=== PATIENT | female | born 1965 | race Caucasian/White ===

== ENCOUNTER 2024-07-10 16:48 | Emergency (ER) | payer MEDICAID, SELFPAY ==
[2024-07-10 17:04] VITALS: BP 152/74; PULSE 100; RESP 18; TEMP 36.6; O2SAT 100; BMI 30.4
--- NOTE | 2024-07-10 17:11 | XR_ITS ---
Examination: Duplex scan of the lower extremity, unilateral left complete Date and time of exam: July 10, 2024 1803 hours INDICATIONS: Onset left leg pain today Technique: Duplex scan of the extremity veins using B-mode/grayscale imaging and Doppler spectral analysis and color flow Attention is directed to internal echogenicity, compression and augmentation involving these veins, color flow assessment, spectral analysis Findings: Positive for acute thrombus in the left popliteal vein Left common femoral superficial femoral peroneal posterior tibial veins are compressible and appear open IMPRESSION: Positive for acute deep vein thrombus left popliteal vein
--- NOTE | 2024-07-10 17:11 | XR_ITS ---
Examination: Arterial duplex lower extremity left unilateral Date and time of exam: July 10, 2024 1740 hours INDICATIONS: Cold left foot with blisters in the left calf note is beginning 4 days ago Findings: Duplex sonographic imaging of the lower extremity arteries using B-mode/Salvador scale imaging and Doppler spectral analysis and color flow. Left common femoral artery demonstrates triphasic flow. Left superficial femoral artery demonstrates triphasic flow. Left popliteal artery demonstrates triphasic flow. Left posterior tibial artery demonstrated triphasic flow. Left dorsalis pedis artery is not visualized, clinical correlation advised Impression: No hemodynamically significant stenoses involving left common femoral, superficial femoral, popliteal or posterior tibial arteries Left dorsalis pedis artery is not visualized, clinical correlation advised Consider elective CTA abdominal aorta iliofemoral runoff post intravenous contrast follow-up to best assess for trifurcation arteries below the knee, as clinically warranted
--- NOTE | 2024-07-10 17:13 | PD.EDRME ---
Rapid Medical Screening Exam E Arrival date/time: 07/10/24 16:48 58-year-old male presents to the emergency department for complaints of blisters to lower left extremity with pain and cool to touch. Sent over by PCP for evaluation. I have greeted and performed a focused initial assessment of this patient. Initial appropriate labs ordered at this time. A comprehensive ED assessment and evaluation of the patient and analysis of all test and completion of medical decision making process will be conducted by additional ED provider. Chief Complaint: Extremity Injury, Lower Time Seen by Provider: 07/10/24 17:07 Vital signs: Vital Signs Temperature 97.8 F 07/10/24 17:04 Pulse Rate 100 07/10/24 17:04 Respiratory Rate 18 07/10/24 17:04 Blood Pressure 152/74 H 07/10/24 17:04 Pulse Oximetry (%) 100 07/10/24 17:04 Oxygen Delivery Method Room Air 07/10/24 17:04
[2024-07-10 17:40] LABS: Basophils # (Auto) 0.1 Thou/mm3 (0.0-0.2); Basophils % (Auto) 1 % (0-2.5); Eosinophils # (Auto) 0.1 Thou/mm3 (0.0-0.5); Eosinophils % (Auto) 1 % (0-10); Hematocrit 49.7 % (36.0-46.0); Hemoglobin 16.4 g/dL (12.0-16.0); Immature Granulocytes % (Auto) 1 % (0-0); Immature Granulocytes Auto 0.12 Thou/mm3 (0.00-0.00); Lymphocytes # (Auto) 2.4 Thou/mm3 (1.0-4.8); Lymphocytes % (Auto) 21 % (10-50); Mean Corpuscular Hemoglobin 31.2 pg (25.0-35.0); Mean Corpuscular Volume 95 fL (80-100); Monocytes # (Auto) 0.7 Thou/mm3 (0.0-0.8); Monocytes % (Auto) 6 % (0-12); Neutrophils # (Auto) 7.8 Thou/mm3 (1.8-7.7); Neutrophils % (Auto) 70 % (37-80); Nucleated Red Blood Cell % 0 /100 WBC (0); Platelet Count 315 Thou/mm3 (140-440); RDW Standard Deviation 51.6 fL (36.4-46.3); Red Blood Count 5.25 Miln/mm3 (4.00-5.20); White Blood Count 11.1 Thou/mm3 (3.6-11.0)
[2024-07-10 18:31] LABS: Alanine Aminotransferase 23 U/L (10-49); Alkaline Phosphatase 89 U/L (46-116); Anion Gap 10 (7-16); Aspartate Amino Transferase 18 U/L (0-34); BUN/Creatinine Ratio 9 Ratio (12-20); Bilirubin,Total < 0.2 mg/dL (0.3-1.2); Blood Urea Nitrogen 8 mg/dL (9-23); Carbon Dioxide 25.1 mMol/L (20.0-31.0); Chloride 106 mMol/L (98-107); Creatinine (Component) 0.9 mg/dL (0.6-1.3); Estimated Creatinine Clearance 76.9 mL/min (>60); Globulin 2.5 gm/dL (2.3-3.5); Glucose 146 mg/dL (74-106); Osmolality,Calculated 282 (275-295); Potassium 4.9 mMol/L (3.4-5.1); Sodium 141 mMol/L (136-145); Total Protein 7.5 gm/dL (5.7-8.2); eGFR > 60 See Note
[2024-07-10 19:14] LABS: Lactate (Lactic Acid) 1.7 mMol/L (0.4-2.0)
[2024-07-10 19:28] LABS: Partial Thromboplastin Time 20.8 Seconds (22.0-36.0); Prothrombin Time 10.5 Seconds (9.0-12.2)
--- NOTE | 2024-07-10 19:43 | EDNOTE_ITS ---
Lower Extremity Injury RME/HPI General Chief Complaint: Extremity Injury, Lower Stated Complaint: sent by pmd for left lower leg, pain, cyanosis Time Seen by Provider: 07/10/24 17:07 Arrival date/time: 07/10/24 16:48 Limitations: no limitations RME / HPI RME / HPI Narrative: 07/10/24 16:48 58-year-old male presents to the emergency department for complaints of blisters to lower left extremity with pain and cool to touch. Sent over by PCP for evaluation. I have greeted and performed a focused initial assessment of this patient. Initial appropriate labs ordered at this time. A comprehensive ED assessment a nd evaluation of the patient and analysis of all test and completion of medical decision making process will be conducted by additional ED provider. Dr. Salvador's Main ED Evaluation: 58yo female with a history of stroke, asthma presents to the ED for complaints of blisters to her left leg since yesterday. Patient states her LLE started hurting yesterday and noticed she had blisters to her LLE. She denies any trauma. She denies any fever, chills, shortness of breath, chest pain or any other associated symptoms. No known allergies. Related Data Home Medications ?Medication ?Instructions ?Recorded ?Confirmed quetiapine 50 mg tablet (Seroquel) 50 mg PO HS 01/24/21 06/29/21 sertraline 25 mg tablet (Zoloft) 50 mg PO QDAY 01/24/21 06/29/21 albuterol 90 mcg/actuation aerosol 90 mcg inhalation PRN PRN Cough 06/29/21 06/29/21 inhaler divalproex 500 mg tablet,delayed 1,500 mg PO BID 06/29/21 06/29/21 release (Depakote) levetiracetam 500 mg tablet 500 mg PO Q12H 06/29/21 06/29/21 (Keppra) olanzapine 20 mg tablet (Zyprexa) 20 mg PO QDAY 06/29/21 06/29/21 phenytoin sodium extended 100 mg 400 mg PO BID 06/29/21 06/29/21 capsule (Dilantin Extended) Previous Rx's ?Medication ?Instructions ?Recorded enoxaparin 100 mg/mL subcutaneous 100 mg subcut QDAY 3 days #3 mL 07/11/24 syringe (Lovenox) warfarin 10 mg tablet 10 mg PO QDAY #2 tabs 07/11/24 Allergies Allergy/AdvReac Type Severity Reaction Status Date / Time No Known Allergies Allergy Verified 07/10/24 16:51 Review of Systems Review of Systems Systems Reviewed: All systems reviewed, normal except as documented Past Medical History Past Medical History NEUROLOGIC: Positive Seizures and Head Trauma (LEAD TO SZ) CARDIAC: Negative Cardiac Disorders or Congestive Heart Failure RESPIRATORY: Positive Chronic Obstructive Pulmonary Disease (COPD) and Asthma GENITOURINARY: Negative Renal Disease MUSCULOSKELETAL: Positive Degenerative Disk Disease and Scoliosis ENT: Positive Cataracts and Head Trauma (LEAD TO SZ) ENDOCRINE: Negative Diabetes Mellitus Type 1 or Diabetes Mellitus Type 2 HEMATOLOGIC: Negative Sickle Cell Disease PSYCHO/SOCIAL: Positive Bipolar Disorder, Depression and Post Traumatic Stress Disorder OTHER HISTORY: Negative Blood Transfusions, Blood Transfusion Reaction or Anesthesia Reactions Surgical History SURGICAL: Positive Abdominal Surgery (Kidney stone removal) and Hysterectomy Social History SMOKING STATUS: Current every day smoker ED Exam General Limitations: Present no limitations General appearance: Present alert and in no apparent distress Head Head exam: Present atraumatic Eye Eye exam: Present normal appearance, PERRL and EOMI ENT ENT exam: Present normal exam, normal oropharynx and mucous membranes moist Neck Neck exam: Present normal inspection, full ROM and trachea midline Chest Chest inspection: Present normal inspection and symmetric chest wall rise Respiratory Respiratory exam: Present normal lung sounds bilaterally Cardiovascular Cardiovascular exam: Present regular rate, normal rhythm and normal heart sounds Abdominal Exam Abdominal exam: Present soft and normal bowel sounds Extremities Exam Extremities exam: Present full ROM and other (5x6 cm blister to the left anterior leg that is big, swollen, and red; 1x3 cm blister on the left lateral left that is hot and swollen; 3+ cap refill bilaterally; left foot is colder than the right ) Back Exam Back exam: Present normal inspection and full ROM Neurological Exam Neurological exam: Present alert, oriented X3 and CN II-XII intact Psychiatric Psychiatric exam: Present normal affect and normal mood Skin Skin exam: Present warm, dry, intact and normal color Course Quality Measures none Orders Category Date Time Status CT Screening NOW Care 07/10/24 19:[address] angio abd ilio fem runoff Stat Exams 07/10/24 19:51 Completed US arterial duplex LE LT Stat Exams 07/10/24 17:11 Completed US venous doppler LE LT Stat Exams 07/10/24 17:11 Completed CBC Stat Lab 07/10/24 17:33 Completed CMP [Comprehensive Metabolic Panel] Stat Lab 07/10/24 17:33 Completed INR [Prothrombin Time with INR] Stat Lab 07/10/24 17:33 Completed Lactate (Lactic Acid) Stat Lab 07/10/24 19:04 Completed PTT [Partial Thromboplastin Time] Stat Lab 07/10/24 17:33 Completed Procalcitonin Stat Lab 07/10/24 17:33 Completed Enoxaparin [Lovenox] Med 07/11/24 02:01 Discontinued 100 mg SC X1 ONE Warfarin [Coumadin] Med 07/11/24 02:20 Discontinued 10 mg PO X1 ONE Vital Signs Vital signs: Vital Signs Temperature 97.8 F 07/10/24 17:04 Pulse Rate 100 07/10/24 17:04 Respiratory Rate 18 07/10/24 17:04 Blood Pressure 152/74 H 07/10/24 17:04 Pulse Oximetry (%) 100 07/10/24 17:04 Oxygen Delivery Method Room Air 07/10/24 17:04 Pulse ox is 100% on room air, which is normal according to my interpretation. Extremity Injury, Lower MDM Narrative MDM Narrative:: Patient is no longer on Zoloft. Patient data External records reviewed:: [facility] previous records (Per chart review, patient was seen here on 06/23/23 for left hemiparesis.) Clinical information provided by:: patient Social determinants that could affect healthcare access:: none Patient has the following chronic illnesses:: stroke, asthma How is presenting disease/condition affected by chronic disease/condition?: uneffected by Evaluation data The following diagnostics were reviewed and interpreted by me:: lab results and radiology exam(s) Lab and/or radiology exams considered but not ordered:: none Interpretation Summary: WBC count is 11.1, Glucose is 146, Lactic Acid is normal, Procalcitonin is normal, PTT is low at 20.8, PT and INR are normal, according to my interpretation. ------ I have personally reviewed the radiology data and agree with the radiologist's interpretation below: [facility] Signed Patient: SERVANDO CORRAL [facility]. Record#: [id number] Birthdate: 1965 Age/Sex: 58 / F Location: [facility] Attending Dr: Ordering Physician: Yolanda Naik Date of Service: 07/10/24 Procedure(s): US arterial duplex LE LT Accession Number(s): [id number] cc: Sheldon Hamm MD; Thuan Orta MD; Yolanda Naik~ Examination: Arterial duplex lower extremity left unilateral Date and time of exam: July 10, 2024 1740 hours INDICATIONS: Cold left foot with blisters in the left calf note is beginning 4 days ago Findings: Duplex sonographic imaging of the lower extremity arteries using B-mode/Salvador scale imaging and Doppler spectral analysis and color flow. Left common femoral artery demonstrates triphasic flow. Left superficial femoral artery demonstrates triphasic flow. Left popliteal artery demonstrates triphasic flow. Left posterior tibial artery demonstrated triphasic flow. Left dorsalis pedis artery is not visualized, clinical correlation advised Impression: No hemodynamically significant stenoses involving left common femoral, superficial femoral, popliteal or posterior tibial arteries Left dorsalis pedis artery is not visualized, clinical correlation advised Consider elective CTA abdominal aorta iliofemoral runoff post intravenous contrast follow-up to best assess for trifurcation arteries below the knee, as clinically warranted Dictated By: Thuan Orta MD Signed By: <Electronically signed by Thuan Orta MD in > 07/10/241837 ------- [facility] Report Signed Patient: SERVANDO CORRAL Record#: [id number] Birthdate: 1965 Age/Sex: 58 / F Location: [facility] Attending Dr: Ordering Physician: Yolanda Naik Date of Service: 07/10/24 Procedure(s): US venous doppler LE LT Accession Number(s): [id number] cc: Sheldon Hamm MD; Thuan Orta MD; Yolanda Naik~ Examination: Duplex scan of the lower extremity, unilateral left complete Date and time of exam: July 10, 2024 1803 hours INDICATIONS: Onset left leg pain today Technique: Duplex scan of the extremity veins using B-mode/grayscale imaging and Doppler spectral analysis and color flow Attention is directed to internal echogenicity, compression and augmentation involving these veins, color flow assessment, spectral analysis Findings: Positive for acute thrombus in the left popliteal vein Left common femoral superficial femoral peroneal posterior tibial veins are compressible and appear open IMPRESSION: Positive for acute deep vein thrombus left popliteal vein Dictated By: Thuan Orta MD Signed By: <Electronically signed by Thuan Orta MD in OV> 07/10/24 1840 [facility] Signed Patient: SERVANDO CORRAL Record#: [id number] Birthdate: 1965 Age/Sex: 58 / F Location: [facility] Attending Dr: Ordering Physician: Elise Salvador MD Date of Service: 07/10/24 Procedure(s): CT angio abd ilio fem runoff Accession Number(s): [id number] cc: Sheldon Hamm MD; Thuan Orta MD; Elise Salvador MD~ Examination: CTA abdominal aorta iliofemoral runoff. 2-D sagittal coronal reconstructions. 3-D reconstructions, vascular July 10, 2024 1016 hrs. Indications: Left lower leg pain redness and swelling today Technique: Multiple CTA images of the abdominal aorta iliofemoral runoff arterial vessels, 2.0 mm slice thickness, post intravenous administration 130 cc [id number] 2-D sagittal coronal reconstructions. 3-D reconstructions, vascular 3-D postprocessing, including vascular maximum intensity projection images, 3-D volume rendering Low dose protocols were performed. One or more of the following dose reduction techniques were used; automated exposure control, adjustment of the mA and/or KV according to patient size, use of iterative reconstruction technique. Findings: No focal liver or splenic lesions Absent gallbladder No pancreatic or adrenal mass Bilateral 1 to 3 mm renal calculi, no hydronephrosis No bowel obstruction Normal appendix No diverticulitis No pelvic mass Contracted urinary bladder Heavy abdominal aortic calcification Intact origins renal arteries Heavy calcification common iliac and external iliac and common femoral arteries Right superficial femoral artery popliteal artery trifurcation arteries intact Left superficial femoral artery popliteal arteries and left trifurcation femoral arteries intact Impression: Tiny bilateral nonobstructing renal calculi No abdominal aortic aneurysm No significant arterial obstructive disease. Dictated By: Thuan Orta MD Signed By: <Electronically signed by Thuan Orta MD in OV> 07/10/24 2327 Medications / Prescriptions Medications or Prescriptions considered but not ordered:: none Medication administrations:: Medication Administration History Discontinued Medications Enoxaparin Sodium (Enoxaparin Sod Inj 100 Mg/Ml Syringe) 100 mg SC X1 ONE Stop: 07/11/24 02:02 Last Admin: 07/11/24 02:48 Dose: 100 mg Documented By: BRIAN Warfarin Sodium (Warfarin 5 Mg Tablet) 10 mg PO X1 ONE Stop: 07/11/24 02:21 Last Admin: 07/11/24 02:47 Dose: 10 mg Documented By: SF see above, if any Consultations Consultation(s) initiated? (list below): No Diagnosis Extremity Injury, Lower Differential Diagnosis: other (DVT, PVD, cellulitis, phlegmasia cerulea dolens) Most likely diagnosis given after review of the tests above:: see below Admission Indicated Admission indicated?: not indicated Admission Request Was there a request for admission?: No Disposition Plan Disposition Plan: Discharge Discharge Attestation Discharge Attestation: The patient and all family members were given an opportunity to ask questions and understood the discharge instructions. Discharge instructions specifically effects, indications for sooner follow up or return to the emergency department, and the expected course of current diagnosis. Patient condition: Stable Discharge Plan Plan Patient Disposition: HOME (Self Care) Patient condition on transfer: Stable Prescriptions/Referrals Prescriptions/Med Rec: New enoxaparin [Lovenox] 100 mg/mL syringe 100 mg subcut QDAY 3 Days Qty: 3 0RF warfarin 10 mg tablet 10 mg PO QDAY Qty: 2 0RF Rx Instructions: Patient is no longer on Zoloft. No Action sertraline [Zoloft] 25 mg Tablet 50 mg PO QDAY quetiapine [Seroquel] 50 mg Tablet 50 mg PO HS levetiracetam [Keppra] 500 mg Tablet 500 mg PO Q12H phenytoin sodium extended [Dilantin Extended] 100 mg Capsule 400 mg PO BID divalproex [Depakote] 500 mg Tablet,Delayed Release (Dr/Ec) 1,500 mg PO BID albuterol 90 mcg/actuation Aerosol 90 mcg INHALATION PRN PRN (Reason: Cough) olanzapine [Zyprexa] 20 mg Tablet 20 mg PO QDAY Referrals: Sheldon Hamm MD [Primary Care Provider] - In 1 week Problem List Clinical Impression: DVT (deep venous thrombosis), Blister Patient/Caregiver Discharge Instructions Education Materials: Enoxaparin injection, What to Know When Taking?Warfarin Additional Instructions: 1. You have a clot in your leg and you will have to be on a blood thinner. Go to the pharmacy today to coal picker the Lovenox shot and they will need to instruct on how to use it. You will need to take the daily Lovenox shot into your Coumadin and or INR are level is therapeutic or between 2 and 3. Take your second Coumadin/warfarin medication at 3a July 12, 2024. Take your second Lovenox injection subcutaneously at 2 AM on July 12, 2024. Take your third Lovenox injection at 2 AM on July 13, 2024. Return Jul 13 @0500, to get your blood drawn to evaluate your Coumadin or INR level. If you cannot get your medication tomorrow at the pharmacy just return to the emergency department at the time that your shot is due. Please see the instructions about what to know when you are taking blood thinners however you would not be able to do any type of activity that which will cause you to fall and hit your head because you have a high risk of bleeding into your brain or other parts of your body. As well you must avoid eating green salads since this will increase your risk for your INR level to increase. 2. You will need to get a new primary care physician and can go to the [facility] clinic at [address]. You can call for an appointment at [phone]. 3. We also have a blister on your anterior leg please do not pick at it or pop it. You can leave the dressing on it. Return to the emergency department for fever, worse pain, shortness of breath, you do not know how to take your medication, or any other concerns. Print Language: Georgian Stand Alone Forms: [employer] Info., Patient Portal Info Letter
--- NOTE | 2024-07-10 19:51 | XR_ITS ---
Examination: CTA abdominal aorta iliofemoral runoff. 2-D sagittal coronal reconstructions. 3-D reconstructions, vascular July 10, 2024 1016 hrs. Indications: Left lower leg pain redness and swelling today Technique: Multiple CTA images of the abdominal aorta iliofemoral runoff arterial vessels, 2.0 mm slice thickness, post intravenous administration 130 cc [id number] 2-D sagittal coronal reconstructions. 3-D reconstructions, vascular 3-D postprocessing, including vascular maximum intensity projection images, 3-D volume rendering Low dose protocols were performed. One or more of the following dose reduction techniques were used; automated exposure control, adjustment of the mA and/or KV according to patient size, use of iterative reconstruction technique. Findings: No focal liver or splenic lesions Absent gallbladder No pancreatic or adrenal mass Bilateral 1 to 3 mm renal calculi, no hydronephrosis No bowel obstruction Normal appendix No diverticulitis No pelvic mass Contracted urinary bladder Heavy abdominal aortic calcification Intact origins renal arteries Heavy calcification common iliac and external iliac and common femoral arteries Right superficial femoral artery popliteal artery trifurcation arteries intact Left superficial femoral artery popliteal arteries and left trifurcation femoral arteries intact Impression: Tiny bilateral nonobstructing renal calculi No abdominal aortic aneurysm No significant arterial obstructive disease.
[2024-07-10 20:00] LABS: Procalcitonin < 0.04 ng/ml (0.0-0.49)
[2024-07-10 22:00] VITALS: BP 154/89; PULSE 89; RESP 19; TEMP 37.2; O2SAT 100
[2024-07-10 23:14] VITALS: BP 130/70; PULSE 88; RESP 19; TEMP 37.1; O2SAT 100
[2024-07-11 02:00] VITALS: BP 146/86; PULSE 86; RESP 18; TEMP 37.2; O2SAT 98
[2024-07-11] MEDS: WARFARIN 5 MG TABLET 10 MG PO (02:47)
[2024-07-11] MEDS: ENOXAPARIN SOD INJ 100 MG/ML SYRINGE SC (02:48)
== END 2024-07-11 03:01 | disposition home or self-care (01) ==
PROVIDERS: Nurse Practitioner Primary Care; Physician Assistant; Emergency Provider Emergency Medicine; PCP Family Medicine
DX: I82.432 Acute embolism and thrombosis of left popliteal vein (principal); S80.822A Blister (nonthermal), left lower leg, initial encounter; X58.XXXA Exposure to other specified factors, initial encounter
CPT/HCPCS: 36415; 75635; 80053; 83605; 84145; 85025; 85610; 85730; 93926; 93971; 96372; 99285; A4649; J1650; Q9967; A9270

== ENCOUNTER 2024-07-14 04:49 | Emergency (ER) | payer MEDICAID, SELFPAY ==
[2024-07-14 04:51] VITALS: BMI 29.9
[2024-07-14 04:56] VITALS: BP 134/74; PULSE 58; RESP 17; TEMP 36.4; O2SAT 98
--- NOTE | 2024-07-14 05:16 | PD.EDRME ---
Rapid Medical Screening Exam RME Arrival date/time: 07/14/24 04:49 58-year-old female with past medical history of CVA and recent diagnosis of lower extremity DVT presents emergency department reporting was told to return for repeat blood work due to patient on blood thinner. Chief Complaint: Wound Recheck / Suture Removal Vital signs: Vital Signs Temperature 97.5 F 07/14/24 04:56 Pulse Rate 58 L 07/14/24 04:56 Respiratory Rate 17 07/14/24 04:56 Blood Pressure 134/74 H 07/14/24 04:56 Pulse Oximetry (%) 98 07/14/24 04:56 Oxygen Delivery Method Room Air 07/14/24 04:56 Vital signs reviewed by provider: Yes
[2024-07-14 06:28] LABS: Basophils # (Auto) 0.1 Thou/mm3 (0.0-0.2); Basophils % (Auto) 1 % (0-2.5); Eosinophils # (Auto) 0.1 Thou/mm3 (0.0-0.5); Eosinophils % (Auto) 1 % (0-10); Hematocrit 46.7 % (36.0-46.0); Immature Granulocytes % (Auto) 1 % (0-0); Lymphocytes # (Auto) 2.6 Thou/mm3 (1.0-4.8); Lymphocytes % (Auto) 29 % (10-50); Mean Corpuscular HGB Conc 32.1 g/dl (31.0-37.0); Mean Corpuscular Hemoglobin 31.1 pg (25.0-35.0); Mean Corpuscular Volume 97 fL (80-100); Monocytes # (Auto) 0.7 Thou/mm3 (0.0-0.8); Monocytes % (Auto) 7 % (0-12); Neutrophils # (Auto) 5.5 Thou/mm3 (1.8-7.7); Neutrophils % (Auto) 61 % (37-80); Nucleated Red Blood Cell % 0 /100 WBC (0); Platelet Count 266 Thou/mm3 (140-440); RDW Standard Deviation 52.1 fL (36.4-46.3); Red Blood Count 4.82 Miln/mm3 (4.00-5.20)
[2024-07-14 06:50] LABS: Alanine Aminotransferase 18 U/L (10-49); Albumin/Globulin Ratio 1.7 (1.2-2.2); Alkaline Phosphatase 88 U/L (46-116); Anion Gap 6 (7-16); Aspartate Amino Transferase 15 U/L (0-34); BUN/Creatinine Ratio 24 Ratio (12-20); Bilirubin,Total < 0.2 mg/dL (0.3-1.2); Blood Urea Nitrogen 17 mg/dL (9-23); Calcium 9.3 mg/dL (8.3-10.6); Calcium (Corrected) 9.3 mg/dL (8.5-10.1); Carbon Dioxide 27.5 mMol/L (20.0-31.0); Chloride 108 mMol/L (98-107); Creatinine (Component) 0.7 mg/dL (0.6-1.3); Estimated Creatinine Clearance 94.7 mL/min (>60); Globulin 2.4 gm/dL (2.3-3.5); Glucose 83 mg/dL (74-106); Osmolality,Calculated 281 (275-295); Potassium 4.8 mMol/L (3.4-5.1); Sodium 141 mMol/L (136-145); Total Protein 6.4 gm/dL (5.7-8.2); eGFR > 60 See Note
[2024-07-14 06:51] LABS: INR 4.6 (0.9-1.3); Partial Thromboplastin Time 30.5 Seconds (22.0-36.0)
[2024-07-14 06:55] LABS: Prothrombin Time 44.7 Seconds (9.0-12.2)
--- NOTE | 2024-07-14 07:24 | PD.EDEXREM ---
ED Extremity Problem RME/HPI General Chief complaint: Wound Recheck / Suture Removal Stated complaint: WOUND RECHECK, +DVT ON 07/12; TOLD TO COME BACK Time Seen by Provider: 07/14/24 07:14 Arrival date/time: 07/14/24 04:49 RME / HPI RME / HPI Narrative: 07/14/24 04:49 58-year-old female with past medical history of CVA and recent diagnosis of lower extremity DVT presents emergency department reporting was told to return for repeat blood work due to patient on blood thinner. DR. BENAVIDEZ MAIN ED EVALUATION 58 year old female with history of CVA and recently diagnosed with left lower extremity DVT 07/10/2024 presents to the ED for repeat blood work today. States she noticed a blister to her left lower extremity 6 days ago and evaluated here 4 days ago. States she was diagnosed with a DVT in the left lower extremity and sent home with Lovenox and Warfarin. States she was instructed to return in a few days for repeat blood work. No new symptoms reported. Denies fevers, chills, chest pain, cough, shortness of breath. Related Data Home Medications ?Medication ?Instructions ?Recorded ?Confirmed quetiapine 50 mg tablet (Seroquel) 50 mg PO HS 01/24/21 06/29/21 sertraline 25 mg tablet (Zoloft) 50 mg PO QDAY 01/24/21 06/29/21 albuterol 90 mcg/actuation aerosol 90 mcg inhalation PRN PRN Cough 06/29/21 06/29/21 inhaler divalproex 500 mg tablet,delayed 1,500 mg PO BID 06/29/21 06/29/21 release (Depakote) levetiracetam 500 mg tablet 500 mg PO Q12H 06/29/21 06/29/21 (Keppra) olanzapine 20 mg tablet (Zyprexa) 20 mg PO QDAY 06/29/21 06/29/21 phenytoin sodium extended 100 mg 400 mg PO BID 06/29/21 06/29/21 capsule (Dilantin Extended) Previous Rx's ?Medication ?Instructions ?Recorded warfarin 10 mg tablet 10 mg PO QDAY #2 tabs 07/11/24 Allergies Allergy/AdvReac Type Severity Reaction Status Date / Time No Known Allergies Allergy Verified 07/10/24 16:51 Review of Systems Review of Systems Narrative Review of Systems: GEN: No fever, no chills, no weight loss EYES: No discharge, no visual changes, no pain HEENT: No ear pain, no congestion, no sore throat PULM: No shortness of breath, no cough, no congestion CV: No chest pain, no dyspnea on exertion, no palpitations GI: No nausea, no vomiting, no diarrhea, no pain, no constipation : No frequency, no urgency and no dysuria MUSC/SKEL: +LLE blister. No joint pain, no back pain SKIN: No rash PSYCH: No hallucinations, no depression HEME/LYMPH: No easy bleeding or bruising tendencies NEURO: No weakness, no headache Past Medical History Past Medical History NEUROLOGIC: Positive Seizures and Head Trauma (LEAD TO SZ) RESPIRATORY: Positive Chronic Obstructive Pulmonary Disease (COPD) and Asthma MUSCULOSKELETAL: Positive Degenerative Disk Disease and Scoliosis ENT: Positive Cataracts and Head Trauma (LEAD TO SZ) PSYCHO/SOCIAL: Positive Bipolar Disorder, Depression and Post Traumatic Stress Disorder Surgical History SURGICAL: Positive Abdominal Surgery (Kidney stone removal) and Hysterectomy Social History SMOKING STATUS: Current some day smoker ED Exam Narrative Physical exam: GENERAL APPEARANCE: Well hydrated, well nourished, in no acute distress. VITALS: All vitals were reviewed and the pulse ox is 98% on room air which is normal according to my interpretation. HEENT: Normocephalic, atramatic, EOMI, EACs are patent. There is no bulge or retraction. Throat without erythema or exudate. Moist oromucosa. No jaundice NECK: Supple, no JVD or bruits. CARDIOVASCULAR: Heart regular without S3-S4 or murmur. No rubs or gallops. LUNGS/CHEST: Clear to auscultation bilaterally. No rales, rhonchi, or wheezing. Normal inspection. ABDOMEN: Soft, nontender, with normal bowel sounds. No pulsatile masses. No rebound, rigidity, or guarding. No incarcerated hernia. Normal inspection and palpation. EXTREMITIES: There are two blisters side by side to the distal left lower leg measuring [id number]. There is redness and increased warmth from the left foot up to the singer consistent with cellulitis. Capillary refill <3. No edema, clubbing, or cyanosis. Intact CSM SKIN: Warm and dry without rashes. Normal inspection. MUSCULOSKELETAL: No gross deformity, full ROM all extremities. NEURO: Alert and oriented x3. Cranial nerves II through XII grossly intact. There are no other motor or sensory deficits noted. PSYCHIATRIC: Normal mood and affect. No psychosis Course Quality Measures none Orders Category Date Time Status CBC Stat Lab 07/14/24 06:16 Completed CMP [Comprehensive Metabolic Panel] Stat Lab 07/14/24 06:16 Completed PT [Prothrombin Time with INR] Stat Lab 07/14/24 06:16 Completed PTT [Partial Thromboplastin Time] Stat Lab 07/14/24 06:16 Completed Tetanus, Diphtheria Toxoids/Pf [Tenivac-Adult] Med 07/14/24 07:40 Once 0.5 ml IMI .ONCE ONE Trimethoprim/Sulfa 160/800 Ds [Bactrim Ds] Med 07/14/24 07:38 Discontinued 1 tab PO X1 ONE cephALEXin [Keflex] Med 07/14/24 07:38 Discontinued 500 mg PO X1 ONE Vital Signs Vital signs: Vital Signs Temperature 97.5 F 07/14/24 04:56 Pulse Rate 58 L 07/14/24 04:56 Respiratory Rate 17 07/14/24 04:56 Blood Pressure 134/74 H 07/14/24 04:56 Pulse Oximetry (%) 98 07/14/24 04:56 Oxygen Delivery Method Room Air 07/14/24 04:56 Extremity Problem MDM Narrative MDM Narrative:: ILilia, am scribing for and in the presence of Dr. Benavidez. CBC is negative. CMP negative. Pro time is 44.7. INR is 4.6. PTT is normal. And the patient is aware that the INR is very high. And that can cause the risk of bleeding. She also has cellulitis involving the left lower leg from the mid singer down to her toes. She also has 2 semicollapsed blisters at the lower part of the left singer 1 medially and 1 laterally each 1 measuring approximately 5 to 7 cm. I informed the patient that they would like her to be admitted for further evaluation and treatment including antibiotics, observation, wound care and careful monitoring of her INR and coagulation, but the patient absolutely refused to be admitted. She is alert awake oriented x 4 GCS of 15. She said she will sign the AMA form. She said that she has to go home because she has a personal thing to take care of. The old dressing was taken down. The new dressing applied by nursing staff. In the emergency department we are giving the patient Keflex, Bactrim and tetanus vaccine. 0735: The patient is refusing admission and is choosing to leave against medical advice. I have personally explained to the patient that choosing to do so may result in permanent bodily harm or . I warned her about the possibility of losing her leg, the risks of bleeding, the risk of sepsis. I discussed a great length that without further evaluation and monitoring there may be unforeseen circumstances and deterioration causing permanent bodily harm or as a result of their choice. The patient is alert, oriented and competent at this time. The patient states that they are aware of the serious risks as explained, but they continue to wish to leave against medical advice. Patient data External records reviewed:: [facility] previous records (I reviewed ED visit on 07/10/2024) Clinical information provided by:: patient Social determinants that could affect healthcare access:: substance use (Methamphetamine ) Patient has the following chronic illnesses:: CVA, recent diagnosed with DVT How is presenting disease/condition affected by chronic disease/condition?: exacerbated by Evaluation data The following diagnostics were reviewed and interpreted by me:: lab results Lab and/or radiology exams considered but not ordered:: None Interpretation Summary: As noted above Medications / Prescriptions Medications or Prescriptions considered but not ordered:: None Medication administrations:: Medication Administration History Tetanus/Diphtheria Toxoids (Tetanus,Diphtheria Toxoids/Pf (Adult) 0.5 Ml Syringe) 0.5 ml IMi .ONCE ONE Stop: 07/14/24 07:41 Discontinued Medications Cephalexin HCl (Cephalexin 250 Mg Capsule) 500 mg PO X1 ONE Stop: 07/14/24 07:39 Trimethoprim/Sulfamethoxazole (Trimethoprim/Sulfa 160/800 Ds Tablet) 1 tab PO X1 ONE Stop: 07/14/24 07:39 See above Consultations Consultation(s) initiated? (list below): No Diagnosis Extremity Problem Differential Diagnosis: cellulitis, lower extremity edema and deep vein thrombosis of lower extremity Most likely diagnosis given after review of the tests above:: Warfarin induced coagulopathy Cellulitis DVT Admission Indicated Admission indicated?: not indicated Explain why admission is indicated or not indicated:: Patient refused admission Admission Request Was there a request for admission?: No Disposition Plan Disposition Plan: Discharge Discharge Attestation Discharge Attestation: The patient and all family members were given an opportunity to ask questions and understood the discharge instructions. Discharge instructions specifically effects, indications for sooner follow up or return to the emergency department, and the expected course of current diagnosis. Patient condition: Stable Discharge Plan Plan Patient Disposition: Left Against Medical Advice Disposition Comment: Stable Prescriptions/Referrals Prescriptions/Med Rec: No Action sertraline [Zoloft] 25 mg Tablet 50 mg PO QDAY quetiapine [Seroquel] 50 mg Tablet 50 mg PO HS levetiracetam [Keppra] 500 mg Tablet 500 mg PO Q12H phenytoin sodium extended [Dilantin Extended] 100 mg Capsule 400 mg PO BID divalproex [Depakote] 500 mg Tablet,Delayed Release (Dr/Ec) 1,500 mg PO BID albuterol 90 mcg/actuation Aerosol 90 mcg INHALATION PRN PRN (Reason: Cough) olanzapine [Zyprexa] 20 mg Tablet 20 mg PO QDAY warfarin 10 mg tablet 10 mg PO QDAY Qty: 2 0RF Rx Instructions: Patient is no longer on Zoloft. Referrals: No Primary/Family,Physician [Primary Care Provider] - In 1 week Problem List Clinical Impression: Warfarin-induced coagulopathy, DVT (deep venous thrombosis), Cellulitis Patient/Caregiver Discharge Instructions Print Language: Icelandic
[2024-07-14 07:40] VITALS: BP 121/78; PULSE 79; RESP 19; TEMP 37.2; O2SAT 100
--- NOTE | 2024-07-14 07:42 | PC.NURSE ---
pt presents to ed for a wound check and to check levels for blood thinner. pt has a left leg wound that has two large blisters, redness and swelling present, dr at bedside wanting pt to be admitted. pt refusing to be admitted at this time states she needs to go find a place to live because she is being evicted. pt encouraged to come back for admission d/t cellulitis. pt aware of risks of signing out AMA, GCS of 15. family at bedside.
[2024-07-14] MEDS: cephALEXin 250 MG CAPSULE 500 MG PO (08:10)
[2024-07-14] MEDS: TETANUS,DIPHTHERIA TOXOIDS/PF (ADULT) 0.5 ML SYRINGE IMi (08:10)
[2024-07-14] MEDS: TRIMETHOPRIM/SULFA 160/800 DS TABLET 1 TAB PO (08:11)
[2024-07-14 08:17] VITALS: BP 104/55; PULSE 87; RESP 19; TEMP 37.5; O2SAT 94
== END 2024-07-14 09:02 | disposition left against medical advice (07) ==
PROVIDERS: Emergency Provider Emergency Medicine
DX: I82.402 Acute embolism and thrombosis of unspecified deep veins of left lower extremity (principal); Z53.29 Procedure and treatment not carried out because of patient's decision for other reasons; D68.9 Coagulation defect, unspecified; T45.515A Adverse effect of anticoagulants, initial encounter; L03.116 Cellulitis of left lower limb
CPT/HCPCS: 36415; 80053; 85025; 85610; 85730; 90471; 90714; 99283; A9270